=== PATIENT | male | born 1955 | race Hispanic/Latino ===

== ENCOUNTER 2016-06-07 21:24 | Emergency (ER) | payer SELFPAY ==
[~2016-06-07] VITALS: Ht 165.1 cm; Wt 63.6 kg
[2016-06-07 21:27] VITALS: BP 116/73; PULSE 84; RESP 16; O2SAT 100
--- NOTE | 2016-06-07 21:54 | ED.REPORT ---
HPI-General Illness Date of Service Jun 07, 2016 ED Provider: Dr. Rios Strauss M.D. A healthy 60 year old male presents to the ED accompanied by his daughter with a piece of fried pork stuck in his throat onset one hour ago. He is now unable to swallow liquids. The patient denies trouble breathing or other symptoms. He has had similar symptoms once in the past, which resolved without treatment. The patient speaks Turkish and his daughter was translating. Nursing Notes Stated Complaint: FOOD STUCK IN THROAT Chief Complaint: General Complaint Nursing Notes Reviewed: Yes Allergies: Coded Allergies: No Known Allergies (Unverified , 06/07/16) General Time Seen by MD: 21:53 Chief Complaint Other (Food Stuck in Throat) Hx Obtained From: Patient, Daughter Arrived By: Walk-in Sudden in Onset?: Yes Onset Occurred: 1 - 4 hours ago Symptom Duration: Since onset Severity: Current: No pain currently Severity: Maximum: No pain Associated with: Reports: Difficulty swallowing, Denies: Shortness of breath Pertinent Negative: Pt denies other symptoms Pertinent Negative: Relieved by nothing Recent Healthcare: No recent doctor visit Similar Sx Previous: Yes Past Medical History Past Medical History None reported Past Surgical History None reported Smoking History Unknown if Ever Smoker Social History Other Social History: Good social support, From out of town ([place]) Ambulatory Status Independent Review of Systems + Food stuck in throat, unable to swallow Full Review of Systems Constitutional: Denies: Fever Respiratory: Denies: Non-productive cough, Shortness of breath, Wheezing GI: Denies: Diarrhea, Vomiting Complete sys rev & neg: except as marked. Physical Exam Vital Signs Vital Signs Date Time Temp Pulse Resp B/P Pulse Ox O2 Delivery O2 Flow Rate FiO2 06/07/16 21:27 36.0 84 16 116/73 100 Room Air Initial VS: Reviewed Skin: Warm, Dry Neurologic: Alert, Oriented Psychiatric: Mood/affect normal, Behavior normal General/Constitutional: Awake, Alert Head / Eyes: Atraumatic, Normocephalic ENT: Airway patent Not able to handle secretions Respiratory / Chest: Breath sounds NL, Breath sounds = bilat, No respiratory distress Cardiovascular: Heart rate NL, Regular rhythm, Heart sounds NL, No gallop, No murmurs, No rubs Interpretation & Diagnostics Lab Results Interpretation Test 06/07/16 22:08 Hold Purple Top Tube Received (Received) Hold Blue Top Tube Received (Received) Hold [place] Top Tube Received (Received) Hold Gagnon Top Tube Received (Received) Re-Eval/Medical Decision Med Decision/Clinical Course Esoph food impaction- resolved with glucagon. Time of Eval: 23:10 Patient Status: Condition resolved Re-Evaluation/Progress Note: Patient is now able to swallow liquid. Discussed with patient lab results, diagnosis, and plan for discharge. Follow-up and return to the ER instructions given. Patient agrees with plan for care and all questions were addressed. Counseled Regarding: Diagnosis, Need for follow-up, When/why to return to ED Discharge & Departure Primary Impression: Food impaction of esophagus Encounter type: initial encounter Qualified Code: T18.128A - Food in esophagus causing other injury, initial encounter Disposition: Home Discharge Condition All VS Reviewed: Yes Condition: Improved Additional Instructions: We are glad that the esophageal food impaction has resolved. To prevent this from happening again, eat slowly and deliberately anterior food carefully. Return if it does happen again. Called to make an appointment to see a GI doctor for endoscopy. Called to establish primary care. Referrals: [facility] Rios Manzo MD Attestation Portions of this note were transcribed by Mira Sarabia. I, Dr. Strauss, personally performed the history, physical exam, and medical decision-making; I reviewed and confirmed the accuracy of the information in the transcribed note. Signed by: Destini Johnson, 06/07/2016, 23:55 copies to: [facility]; Rios Manzo MD, Donald L MD Jun 07, 2016 21:54 MIRA SARABIA Jun 07, 2016 22:02
[2016-06-07] MEDS ORDERED: Glucagon 1 mg/mL Inj IV ONE (22:00)
== END 2016-06-07 23:19 | disposition home or self-care (01) ==
LOC: SED 21:24
DX: T18.120A Food in esophagus causing compression of trachea, initial encounter (principal); Y93.89 Activity, other specified; Y92.89 Other specified places as the place of occurrence of the external cause; Y99.8 Other external cause status
CPT/HCPCS: 96374; 99284; J1610